=== PATIENT | male | born 1960 | race Caucasian/White ===

== ENCOUNTER 2022-01-17 09:41 | Inpatient (IN) ==
[2022-01-17] MEDS ORDERED: 0.9 % Sodium Chloride 1,000 ML ONE ×2 (10:29→11:27)
[2022-01-17] MEDS ORDERED: *HR* FentaNYL (PF) 100 MCG/2 ML VIAL ONE (11:26)
[2022-01-17] MEDS ORDERED: *HR* Midazolam HCl 2 MG/2 ML VIAL ONE (11:26)
[2022-01-17] MEDS ORDERED: Nitroglycerin 1,000 MCG/5 ML VIAL IV ONE (11:27)
[2022-01-17] MEDS ORDERED: *HR* Heparin 10,000 UNIT/10 ML VIAL ONE (11:27)
[2022-01-17] MEDS ORDERED: Iopamidol - 370 200 ML INFUS..BTL ONE (11:27)
[2022-01-17] MEDS ORDERED: Heparin 1,000 UNITS/500 mL 500 ML ONE ×2 (11:27→12:32)
[2022-01-17] MEDS ORDERED: *HR* Atropine Sulfate 1 MG/10 ML SYRINGE ONE (12:05)
[2022-01-17] MEDS ORDERED: Ondansetron 4 MG/2 ML VIAL ONE (12:07)
[2022-01-17] MEDS ORDERED: Tirofiban 12.5 MG/250ML 12.5 MG/250 ML BAG ONE (12:10)
[2022-01-17] MEDS ORDERED: Nitroglycerin 0.4 MG TAB.SUBL SL PRN (13:37)
[2022-01-17] MEDS ORDERED: Fluticasone Propionate Nasal 50 MCG/SPRAY BOTTLE NS PRN (13:37)
[2022-01-17] MEDS ORDERED: Clotrimazole/Betameth Dip CRM 45 APPL/45 GM TUBE TP PRN (13:37)
[2022-01-17] MEDS ORDERED: Tirofiban 12.5 MG/250ML 12.5 MG/250 ML BAG IVC SCH (13:45)
[2022-01-17] MEDS ORDERED: valACYclovir 500 MG TABLET PO PRN (14:11)
[2022-01-17] MEDS: Pregabalin 75 MG CAPSULE PO SCH ×2 (16:32→19:35)
[2022-01-17] MEDS: gemfibroziL 600 MG TABLET PO SCH (16:32)
[2022-01-17] MEDS: Patient Taking Own Medication 1 EACH PO SCH (19:23)
[2022-01-17] MEDS: Cyanocobalamin (B-12) 1,000 MCG TABLET PO SCH (19:25)
[2022-01-17] MEDS: *HR* HYDROcodone/Acet 5/325 mg TABLET PO PRN (19:35)
[2022-01-18 06:56] LABS: Hematocrit 39.4 % (37.5-50.1); Hemoglobin 13.2 g/dL (12.9-16.9)
[2022-01-18] MEDS ORDERED: D5% in Water 1,000 ML IVC PRN (08:11)
[2022-01-18] MEDS ORDERED: Dextrose Gel 15 GM/37.5 ML TUBE PO PRN ×2 (08:11)
[2022-01-18] MEDS ORDERED: *HR* Dextrose 50 % in Water (Syg) 50 ML SYRINGE IVP PRN (08:11)
[2022-01-18] MEDS: *HR* Heparin 5,000 UNIT/ML VIAL SQ SCH ×2 (08:43→17:58)
[2022-01-18] MEDS: Aspirin Enteric Coated 81 MG Tablet PO SCH (08:44)
[2022-01-18] MEDS: Pregabalin 75 MG CAPSULE PO SCH ×3 (08:44→20:27)
[2022-01-18] MEDS: *HR* SitaGLIPtin 100 MG TABLET PO SCH (08:45)
[2022-01-18] MEDS: gemfibroziL 600 MG TABLET PO SCH ×2 (08:45→16:23)
[2022-01-18] MEDS: Metoprolol XL (24 HR) Succ 25 MG TAB.ER.24H PO SCH (08:46)
[2022-01-18] MEDS: Patient Taking Own Medication 1 EACH PO SCH ×2 (08:47→20:29)
[2022-01-18] MEDS: Cyanocobalamin (B-12) 1,000 MCG TABLET PO SCH ×2 (08:48→20:29)
[2022-01-18 09:30] LABS: BUN/Creatinine Ratio 17 (6-26); Blood Urea Nitrogen 14 mg/dL (8-23); eGFR For African Americans > 60 (> 60); eGFR For Non-African Americans > 60 (> 60)
[2022-01-18] MEDS: Insulin LISPRO 300 UNITS/3 ML VIAL SUBQ SCH ×2 (14:55→16:24)
[2022-01-18] MEDS ORDERED: Perflutren Lipid Microsphere 1.3 ML in 0.9 % Sodium Chloride 8.7 ML IVP PRN (14:57)
[2022-01-18] MEDS: *HR* HYDROcodone/Acet 5/325 mg TABLET PO PRN (20:28)
[2022-01-19] MEDS: *HR* Heparin 5,000 UNIT/ML VIAL SQ SCH (05:05)
[2022-01-19 05:55] LABS: Basophils % 0.5 %; Eosinophils # 0.2 K/mcL (0.0-0.6); Hematocrit 39.6 % (37.5-50.1); Hemoglobin 13.3 g/dL (12.9-16.9); Immature Granulocytes % 0.8 % (0-4); Lymphocytes # 1.5 K/mcL (0.6-4.6); Lymphocytes % 24.4 %; Mean Corpuscular HGB Conc 33.6 g/dL (31.6-35.5); Mean Corpuscular Volume 86.3 fL (83.0-100.0); Mean Platelet Volume 9.4 fL (9.4-12.4); Monocytes # 0.7 K/mcL (0.0-1.3); Monocytes % 11.1 %; Neutrophils # 3.6 K/mcL (1.6-8.9); Platelet Count 228 K/mcL (140-400); Red Blood Count 4.59 M/mcL (4.19-5.50); Red Cell Distribution Width 13.1 % (11.5-14.5); Segmented Neutrophils % 59.2 %; White Blood Count 6.1 K/mcL (4.3-11.1)
[2022-01-19 06:19] LABS: BUN/Creatinine Ratio 16 (6-26); Blood Urea Nitrogen 14 mg/dL (8-23); Calcium 8.9 mg/dL (8.6-10.3); Carbon Dioxide 25 mEq/L (23-29); Chloride 103 mEq/L (98-107); Glucose 195 mg/dL (70-105); Osmolality,Calculated 288 (280-300); Potassium 4.3 mEq/L (3.5-5.1); Sodium 136 mEq/L (136-145); eGFR For African Americans > 60 (> 60); eGFR For Non-African Americans > 60 (> 60)
[2022-01-19] MEDS: Pregabalin 75 MG CAPSULE PO SCH (07:21)
[2022-01-19] MEDS: Insulin LISPRO 300 UNITS/3 ML VIAL SUBQ SCH (07:21)
[2022-01-19] MEDS: Cyanocobalamin (B-12) 1,000 MCG TABLET PO SCH (07:21)
[2022-01-19] MEDS: *HR* SitaGLIPtin 100 MG TABLET PO SCH (07:21)
[2022-01-19] MEDS: Aspirin Enteric Coated 81 MG Tablet PO SCH (07:21)
[2022-01-19] MEDS: gemfibroziL 600 MG TABLET PO SCH (07:21)
[2022-01-19] MEDS: Patient Taking Own Medication 1 EACH PO SCH (07:22)
[2022-01-19] MEDS: Metoprolol XL (24 HR) Succ 25 MG TAB.ER.24H PO SCH (07:22)
[2022-01-19 08:18] VITALS: O2SAT 94
[2022-01-19 09:35] VITALS: TEMP 97.7
[2022-01-19] MEDS ORDERED: Isosorbide MONOnitrate (24 HR) 30 MG TAB.ER.24H PO SCH (09:36)
[2022-01-19 10:04] VITALS: BP 132/80; PULSE 68
== END 2022-01-19 10:18 | disposition home or self-care (01) | DRG 247 ==
LOC: INVDIALAB 09:41 → ICNU 15:34
PROVIDERS: ADMIT Internal Medicine; ATTEND Internal Medicine